=== PATIENT | female | born 1965 | race Two or more races ===

== ENCOUNTER → 2017-01-07 | Outpatient (CLI) | payer OTHER ==
--- NOTE | 2017-01-07 16:17 | MA ---
Screening Digital Mammogram With iCAD Analysis Clinical Indications: Routine screening. A sister was diagnosed with breast cancer in her 50s. Technique: Standard cephalocaudal and mediolateral oblique projections were obtained. This examinatio n was processed by the iCAD computer aided detection system. Comparison: December 2015, November 2014, November 2013, August 2012, July 2011, July 2010. Breast density: Type C; Heterogeneously dense. Findings: CAD was reviewed. There is a possible developing asymmetry noted in the slightly medial lef t breast. No definite correlate is found on the oblique view. No suspicious microcalcifications are i dentified. The right breast is stable in appearance. Impression: Possible developing left breast asymmetry requires further evaluation, BI-RADS 0. Recommendation: Spot compression assessment of the left breast with ultrasound suggested if the abnor mality persists on diagnostic evaluation. [facility] will send a result letter to the patient. Dense breast parenchyma diminishes mammographic sensitivity. Negative mammography should not preclude additional workup of a clinically suspicious finding. The patient's information is entered into a reminder system with a target due date for her next mammo gram.
== END ==
LOC: CIMAGING 14:34
DX: Z12.31 Encounter for screening mammogram for malignant neoplasm of breast (principal); Z80.3 Family history of malignant neoplasm of breast
CPT/HCPCS: G0202

== ENCOUNTER 2017-04-16 14:53 | Emergency (ER) | payer OTHER ==
[2017-04-16 14:57] VITALS: TEMP 97.9
--- NOTE | 2017-04-16 15:39 | EDPHY ---
H & P Stated Complaint: 1 WEEK CP/L FACIAL NUMBNESS/L EYE HURTS Time Seen by Provider: 04/16/17 15:18 HPI/ROS: CHIEF COMPLAINT: Multiple complaints HISTORY OF PRESENT ILLNESS: This patient is a 51 year old female referred to the Emergency Department by her PCP for multiple vague complaints including chest pressure, abdominal pain, and facial paresthesias. She describes the chest pressure as episodic over the past two weeks, with each episode lasting for on hour before subsiding spontaneously. At time of arrival, her chest pressure is moderate (severity 6/10) and localized to her left anterior chest. She has not identified any alleviating or exacerbating factors for the pain but does state it is often precipitated by eating a large meal. Her pain is not exertional. She reports diffuse abdominal pain, most severe bilaterally to her lower abdomen, first beginning three weeks prior to arrival and present at time of arrival to the ED. Her abdominal pain is often precipitated by eating a large meal. The patient is also concerned of a throbbing sensation to her left eye with surrounding paresthesias to the left side of her face and occasionally to her left hand. She denies vomiting, diarrhea, nausea, or urinary complaints. No weakness, speech changes, vision changes, or additional neurological deficits. No pertinent medical history. REVIEW OF SYSTEMS: Aside from elements discussed in the HPI, a comprehensive 10-point review of systems was reviewed and is negative apart from left lateral neck pain beginning one month ago and improving over time. History and ROS obtained with the help of a Occitan humanities and languages professor. PAST MEDICAL HISTORY: Anemia, acid reflux. FAMILY HISTORY: Family history includes cardiac disease in grandmother and uncles and CVA in sister at age 50. SOCIAL HISTORY: Denies drug use. Non-smoker. No alcohol use. PHYSICAL EXAM: VITAL SIGNS Reviewed by me. GENERAL: Well-developed, well-nourished, pleasant, conversant, mostly concerned about her chest discomfort as well as her facial numbness. HEENT: Atraumatic. Eyes: PERRL, EOMI, no nystagmus. No icterus. No injection. Mouth: moist mucous membranes. No erythema or lesions. Neck: No meningitis. Nontender to palpation. No adenopathy. LUNGS: Clear to auscultation bilaterally, no wheezes, rhonchi or rales. CARDIAC: Regular rate and rhythm, no rubs, murmurs or gallops. No chest wall tenderness. ABDOMEN: Soft, epigastric tenderness to palpation. No guarding or rebound. Nondistended. Normal bowel sounds. BACK: No CVA tenderness. EXTREMITIES: No trauma. No edema. Range of motion is normal throughout. NEURO: Alert and oriented, cranial nerves II through XII are intact. Motor strength 5 over 5 in all major muscle groups. Sensation intact to light touch. Normal gait. SKIN: Warm and dry, no rash. PSYCHIATRIC: Normal mentation, no agitation. Portions of this note were transcribed by a medical director/head team physician. I personally performed a history, physical exam, medical decision making, and confirmed accuracy of information the transcribed note. 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 - Personal History LMP (Females 10-55): Irregular Current Tetanus/Diphtheria Vaccine: No - Medical/Surgical History Hx Asthma: No Hx Chronic Respiratory Disease: No Hx Diabetes: No Hx Cardiac Disease: No Hx Renal Disease: No Hx Cirrhosis: No Hx Alcoholism: No Hx HIV/AIDS: No Hx Splenectomy or Spleen Trauma: No Other PMH: GERD - Social History Smoking Status: Never smoked Constitutional: Initial Vital Signs Temperature (C) 36.6 C 04/16/17 14:55 Heart Rate 71 04/16/17 14:55 Respiratory Rate 18 04/16/17 14:55 Blood Pressure 129/67 H 04/16/17 14:55 O2 Sat (%) 94 04/16/17 14:55 O2 Delivery Mode Room Air Allergies/Adverse Reactions: No Known Allergies Allergy (Verified 04/16/17 14:54) Home Medications: Medication Instructions Recorded Omeprazole 06/03/16 Ranitidine HCl [Zantac] 150 mg PO HS #30 tablet 04/16/17 Medical Decision Making - Diagnostics EKG Interpretation: The 12 lead EKG was interpreted by myself: Normal sinus rhythm, rate 71, no ischemic changes. See hard copy and/or "tracemaster" electronic copy for interpretation. Imaging Results: Imaging Impressions Chest X-Ray 04/16/17 15:42 Impression: Normal chest. Head CT 04/16/17 15:43 Impression: Normal noncontrast CT of the brain. Results called to Dr. Marion Byrne at the time of the interpretation. Imaging: Discussed imaging studies w/ faculty i on call medical assistant Radiologist ED Course/Re-evaluation: This 51-year-old female presents with a list of vague complaints including episodic left-sided chest pain, left-sided paresthesias to her face and left hand, and diffuse abdominal pain all of which presented over the past month. It is unclear whether or not these complaints are associated with one another. Her chest pain is episodic and described as pressure without radiation; it is not exertional, it is not associated with diaphoresis or nausea. She reports abdominal pain and has slight epigastric tenderness during the examination. Her left-sided facial paresthesias are intermittent. She has no associated neurological complaints and no neurological deficits on exam. She is a non-smoker. Family history includes CVA in sister and cardiac disease in distant relatives. She does not smoke. No history of diabetes. Will proceed with cardiac workup, labs, and CT of the head. I discussed this treatment plan with the patient who is agreeable to this. Prior medical records reviewed by myself. Abdominal ultrasound in May 2016 was negative for acute process, specifically no gallstones. PO Gi Cocktail and 324mg PO Aspirin administered. 1615: Imaging results reported to me: CT of the head is negative for acute process. Labs obtained and are within normal ranges. D-dimer and Troponin are both negative. 1650: On reevaluation, the patient is feeling much better following the Gi Cocktail. I discussed lab and imaging results with the patient, who is relieved. I discussed with her my recommendation that she be reevaluated by her PCP for her complaints. I also included a referral for gastroenterology and neurology. She understands customary return precautions and will be discharged home in good condition. Differential Diagnosis: After history and physical examination, the differential for chest pain was considered, including but not limited to, myocardial ischemia, acute coronary syndrome, pulmonary embolus, chest wall pain, pleural inflammation and pulmonary infectious causes. After obtaining the patient's history and performing an examination, differential diagnosis for the patient's abdominal pain considered included but was not limited to appendicitis, cholecystitis, gastritis, pancreatitis, kidney stones, urinary tract infections and other causes. Differential diagnosis for the patient's neurologic complaints was considered including but not limited to electrolyte abnormalities, TIA, stroke, complex migraine, referred pain. - Data Points Laboratory Results: Laboratory Results 04/16/17 15:10 04/16/17 15:10 04/16/17 04/16/17 04/16/17 15:10 15:10 15:10 WBC RBC Hgb Hct MCV MCH MCHC RDW Plt Count MPV Neut % (Auto) Lymph % (Auto) Mccone % (Auto) Eos % (Auto) Baso % (Auto) Nucleat RBC Rel Count Absolute Neuts (auto) Absolute Lymphs (auto) Absolute Monos (auto) Absolute Eos (auto) Absolute Basos (auto) Absolute Nucleated RBC Immature Gran % Immature Gran # D-Dimer < 0.27 ug/mLFEU ug/mLFEU (0.00-0.50) Sodium 142 mEq/L mEq/L (134-144) Potassium 3.9 mEq/L mEq/L (3.5-5.2) Chloride 104 mEq/L mEq/L (97-110) Carbon Dioxide 26 mEq/l mEq/l (22-31) Anion Gap 12 mEq/L mEq/L (8-16) BUN 12 mg/dL mg/dL (7-23) Creatinine 0.6 mg/dL mg/dL (0.6-1.0) Estimated GFR > 60 Glucose 98 mg/dL mg/dL (70-100) Calcium 10.2 mg/dL mg/dL (8.5-10.4) Total Bilirubin 0.5 mg/dL mg/dL (0.1-1.4) Conjugated Bilirubin 0.3 mg/dL mg/dL (0.0-0.5) Unconjugated Bilirubin 0.2 mg/dL mg/dL (0.0-1.1) AST 29 IU/L IU/L (14-46) ALT 46 IU/L IU/L (9-52) Alkaline Phosphatase 82 IU/L IU/L (38-126) Creatine Kinase 39 IU/L IU/L (0-156) CK-MB (CK-2) Fraction 0.36 ng/mL ng/mL (0-3.19) Troponin I < 0.012 ng/mL ng/mL < 0.012 ng/mL ng/mL (0-0.034) (0-0.034) Total Protein 8.4 g/dL H g/dL (6.3-8.2) Albumin 5.0 g/dL g/dL (3.5-5.0) Lipase 135.0 IU/L IU/L (23-300) 04/16/17 15:10 WBC 7.77 10^3/uL 10^3/uL (3.80-9.50) RBC 4.89 10^6/uL 10^6/uL (4.18-5.33) Hgb 14.4 g/dL g/dL (12.6-16.3) Hct 41.9 % % (38.0-47.0) MCV 85.7 fL fL (81.5-99.8) MCH 29.4 pg pg (27.9-34.1) MCHC 34.4 g/dL g/dL (32.4-36.7) RDW 14.9 % % (11.5-15.2) Plt Count 281 10^3/uL 10^3/uL (150-400) MPV 9.4 fL fL (8.7-11.7) Neut % (Auto) 51.7 % % (39.3-74.2) Lymph % (Auto) 36.8 % % (15.0-45.0) Mccone % (Auto) 7.2 % % (4.5-13.0) Eos % (Auto) 3.2 % % (0.6-7.6) Baso % (Auto) 0.8 % % (0.3-1.7) Nucleat RBC Rel Count 0.0 % % (0.0-0.2) Absolute Neuts (auto) 4.02 10^3/uL 10^3/uL (1.70-6.50) Absolute Lymphs (auto) 2.86 10^3/uL 10^3/uL (1.00-3.00) Absolute Monos (auto) 0.56 10^3/uL 10^3/uL (0.30-0.80) Absolute Eos (auto) 0.25 10^3/uL 10^3/uL (0.03-0.40) Absolute Basos (auto) 0.06 10^3/uL 10^3/uL (0.02-0.10) Absolute Nucleated RBC 0.00 10^3/uL 10^3/uL (0-0.01) Immature Gran % 0.3 % % (0.0-1.1) Immature Gran # 0.02 10^3/uL 10^3/uL (0.00-0.10) D-Dimer Sodium Potassium Chloride Carbon Dioxide Anion Gap BUN Creatinine Estimated GFR Glucose Calcium Total Bilirubin Conjugated Bilirubin Unconjugated Bilirubin AST ALT Alkaline Phosphatase Creatine Kinase CK-MB (CK-2) Fraction Troponin I Total Protein Albumin Lipase Medications Given: Discontinued Medications Al Hydroxide/Mg Hydroxide (Maalox Susp) 30 ml PO ONCE ONE Stop: 04/16/17 15:42 Last Admin: 04/16/17 15:57 Dose: 30 ml Aspirin (Aspirin) 324 mg PO EDNOW ONE Stop: 04/16/17 15:42 Last Admin: 04/16/17 15:57 Dose: 324 mg Hyoscyamine Sulfate (Levsin, Hyomax-Sl) 0.25 mg PO ONCE ONE Stop: 04/16/17 15:42 Last Admin: 04/16/17 15:57 Dose: 0.25 mg Lidocaine (Lidocaine 2% Viscous) 15 ml PO ONCE ONE Stop: 04/16/17 15:42 Last Admin: 04/16/17 15:57 Dose: 15 ml Departure - Departure Disposition: Home, Routine, Self-Care Clinical Impression: Atypical chest pain, Abdominal pain, Facial paresthesia Condition: Good Instructions: Chest Pain (ED), Paresthesia (ED), Abdominal Pain (ED) Additional Instructions: 1. Start taking Tagamet as directed at night to help with your abdominal pain and acid reflux. 2. Follow-up with your primary care provider for further evaluation of your complaints in the next 5-7 days. 3. I have also included a referral to a neurologist, Dr. Zuniga, to discuss your numbness and tingling. Please call to schedule an appointment. 4. Follow-up with a lathe hand for further evaluation of your abdominal pain and acid reflux. We have referred you to our on-call provider. 5. Return to the Emergency Department if you experience difficulty breathing, worsening chest pain, worsening abdominal pain, fever or chills, or for other serious concerns. 1. Empiece a shellie Tagamet a patricia se le indico por la noche para ayudar con mendez dolor abdominal y el reflujo. 2. Lindy paola jennie de seguimiento con mendez doctor primario para futura evaluacion de geraldine quejas en los proximos 5-7 james. 3. He incluido paola recomendacion con un neurologo Dr. Zuniga para comentar el dormideo y cosquilleo. Por favor llamele para hacer paola jennie de seguimiento. 4. Lindy seguimiento con mendez gastroenterlogo para re evaluar mendez dolor abdominal y reflujo. Le recomendamos nuestro proveedor en llamada. 5. Regrese a la marsha de emergencia si experimenta dificultad para respirar, empeora el dolor de pecho y abdominal, si tiene fiebres o escalofrios u otras preocupaciones serias. Referrals: MAYDA ORNELAS [Primary Care Provider] - As per Instructions Amandeep Zhu MD [Medical Doctor] - As per Instructions Bjorn Zuniga MD [Medical Doctor] - As per Instructions Prescriptions: Ranitidine HCl [Zantac] 150 mg PO HS #30 tablet Print Language: Occitan Report Scribed for: Marion Byrne Report Scribed by: Aria Gomez Date of Report: 04/16/17 Time of Report: 15:42
[2017-04-16] MEDS ORDERED: HYOSCYAMINE SULFATE 0.125 MG TAB PO ONE (15:41)
[2017-04-16] MEDS ORDERED: LIDOCAINE 2% VISCOUS 15 ML UDCUP PO ONE (15:41)
[2017-04-16] MEDS ORDERED: MAG HYDROX/AL HYDROX/SIMETH 30 ML UDCUP PO ONE (15:41)
[2017-04-16] MEDS ORDERED: ASPIRIN 81 MG CHEWABLE TAB PO ONE (15:41)
--- NOTE | 2017-04-16 15:41 | CPEKG ---
Heart Rate: 71 RR Interval: 845 P-R Interval: 124 QRSD Interval: 86 QT Interval: 400 QTC Interval: 435 P Toledo: 22 QRS Toledo: 45 T Wave Toledo: 47 EKG Severity - NORMAL ECG - EKG Impression: SINUS RHYTHM Electronically Signed By: Marion Byrne 17-Apr-2017 00:54:08
[2017-04-16 15:51] LABS: % IMMATURE GRANULYOCYTES 0.3 % (0.0-1.1); ABSOLUTE IMMATURE GRANULOCYTES 0.02 10^3/uL (0.00-0.10); ADD DIFF? NO; ADD MORPH? NO; ADD SCAN? NO; ATYPICAL LYMPHOCYTE FLAG 20 (0-99); FRAGMENT RBC FLAG 0 (0-99); HEMATOCRIT 41.9 % (38.0-47.0); HEMOGLOBIN 14.4 g/dL (12.6-16.3); LEFT SHIFT FLG 0 (0-99); LIPEMIA HEMOLYSIS FLAG 90 (0-99); MEAN CELL HEMOGLOBIN 29.4 pg (27.9-34.1); MEAN CELL HEMOGLOBIN CONCENTR. 34.4 g/dL (32.4-36.7); MEAN CELL VOLUME 85.7 fL (81.5-99.8); MEAN PLATELET VOLUME 9.4 fL (8.7-11.7); PLATELET CLUMPS FLAG 0 (0-99); PLATELET COUNT 281 10^3/uL (150-400); RED BLOOD CELL COUNT 4.89 10^6/uL (4.18-5.33); RED CELL DISTRIBUTION WIDTH 14.9 % (11.5-15.2)
[2017-04-16 16:02] LABS: ALANINE AMINOTRANSFERASE 46 IU/L (9-52); ALKALINE PHOSPHATASE 82 IU/L (38-126); ANION GAP 12 mEq/L (8-16); ASPARTATE AMINOTRANSFERASE 29 IU/L (14-46); BILIRUBIN,TOTAL 0.5 mg/dL (0.1-1.4); BILIRUBIN-CONJUGATED 0.3 mg/dL (0.0-0.5); BILIRUBIN-UNCONJUGATED 0.2 mg/dL (0.0-1.1); CALCIUM 10.2 mg/dL (8.5-10.4); CARBON DIOXIDE 26 mEq/l (22-31); CHLORIDE 104 mEq/L (97-110); CREATININE 0.6 mg/dL (0.6-1.0); GLOMERULAR FILTRATION RATE > 60; GLUCOSE 98 mg/dL (70-100); POTASSIUM 3.9 mEq/L (3.5-5.2); SODIUM 142 mEq/L (134-144); TOTAL PROTEIN 8.4 g/dL (6.3-8.2)
[2017-04-16 16:13] LABS: CREATINE KINASE-MB FRACTION 0.36 ng/mL (0-3.19); TROPONIN I < 0.012 ng/mL (0-0.034)
[2017-04-16 17:15] VITALS: BP 118/62; PULSE 67; RESP 16; O2SAT 95
== END 2017-04-16 17:30 | disposition home or self-care (01) ==
DX: R07.89 Other chest pain (principal); R10.13 Epigastric pain; R20.2 Paresthesia of skin

== ENCOUNTER 2017-06-25 11:22 | Emergency (ER) | payer OTHER ==
[2017-06-25] MEDS ORDERED: NS 1,000 ML IV ONE (11:33)
[2017-06-25] MEDS ORDERED: HYDROmorphONE/DILAUDID 1 MG/ML SYR IVP ONE (11:33)
[2017-06-25] MEDS ORDERED: ONDANSETRON 4 MG/2 ML VIAL IVP ONE (11:33)
--- NOTE | 2017-06-25 11:35 | EDPHY ---
H & P Stated Complaint: vomiting, diarrhea sweat/chills since Thursday Time Seen by Provider: 06/25/17 11:29 HPI/ROS: CHIEF COMPLAINT: Nausea vomiting HISTORY OF PRESENT ILLNESS: The patient is a 51-year-old female with no significant past medical history who comes to the emergency department complaining of nausea and vomiting for the last 2 days as well as diarrhea. She states that they have been persistent. She has not had a fever. No blood. Her daughter is sick with similar symptoms. She complains of cramping in her upper abdomen but no lower abdominal pain. She has a history of but no other surgeries. She also states that she has intermittent dysuria. REVIEW OF SYSTEMS: Constitutional: denies: chills, fever, recent illness, recent injury EENTM: denies: blurred vision, double vision, nose congestion Respiratory: denies: cough, shortness of breath Cardiac: denies: chest pain, irregular heart rate, lightheadedness, palpitations Gastrointestinal/Abdominal: See HPI Genitourinary: denies: dysuria, frequency, hematuria, pain Musculoskeletal: denies: joint pain, muscle pain Skin: denies: lesions, rash, jaundice, bruising Neurological: denies: headache, numbness, paresthesia, tingling, dizziness, weakness Hematologic/Lymphatic: denies: blood clots, easy bleeding, easy bruising Immunologic/allergic: denies: HIV/AIDS, transplant EXAM: GENERAL: Well-appearing, overweight . HEAD: Atraumatic, normocephalic. EYES: Pupils equal round and reactive to light, extraocular movements intact, sclera anicteric, conjunctiva are normal. ENT: TMs normal, nares patent, oropharynx clear without exudates. Dry mucous membranes. NECK: Normal range of motion, supple without lymphadenopathy or JVD. LUNGS: Breath sounds clear to auscultation bilaterally and equal. No wheezes rales or rhonchi. HEART: Regular rate and rhythm without murmurs, rubs or gallops. ABDOMEN: Soft, nontender, normoactive bowel sounds. No guarding, no rebound. No masses appreciated. BACK: No CVA tenderness, no spinal tenderness, step-offs or deformities EXTREMITIES: Normal range of motion, no pitting or edema. No clubbing or cyanosis. NEUROLOGICAL: Cranial nerves II through XII grossly intact. Normal speech, normal gait. 5/5 strength, normal movement in all extremities, normal sensation PSYCH: Normal mood, normal affect. SKIN: Warm, dry, normal turgor, no visible rashes or lesions. 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 Exam Limitations: No limitations - Personal History LMP (Females 10-55): Irregular Current Tetanus/Diphtheria Vaccine: No - Medical/Surgical History Hx Asthma: No Hx Chronic Respiratory Disease: No Hx Diabetes: No Hx Cardiac Disease: No Hx Renal Disease: No Hx Cirrhosis: No Hx Alcoholism: No Hx HIV/AIDS: No Hx Splenectomy or Spleen Trauma: No Other PMH: GERD. C section - Family History Significant Family History: No pertinent family hx - Social History Smoking Status: Never smoked Alcohol Use: Sober Drug Use: None Constitutional: Initial Vital Signs Temperature (C) 37.1 C 06/25/17 11:31 Heart Rate 84 06/25/17 11:31 Respiratory Rate 20 06/25/17 11:31 Blood Pressure 139/84 H 06/25/17 11:31 O2 Sat (%) 95 06/25/17 11:31 O2 Delivery Mode Room Air Allergies/Adverse Reactions: No Known Allergies Allergy (Verified 06/25/17 11:33) Home Medications: Medication Instructions Recorded Cephalexin [Keflex] 500 mg PO TID #21 cap 06/25/17 Omeprazole 06/25/17 Ondansetron Odt [Zofran Odt 4 mg 4 mg PO Q4 PRN #20 tab 06/25/17 (RX)] Medical Decision Making ED Course/Re-evaluation: 12:50 p.m. the patient is feeling much better but is sleepy after 0.5 mg of Dilaudid. Her abdominal exam remains benign. I will treat her with a 2nd L. Her mucous membranes still appear slightly dry. Will continue to observe. 1:30 p.m. the patient is feeling completely well. Her abdominal exam remains benign. Under for antibiotics finished we will discharge her. She appears to have a slight urinary tract infection based on her symptoms. Differential Diagnosis: Partial list of the Differential diagnosis considered include but were not limited to; gastritis, food poisoning and although unlikely based on the history and physical exam, I also considered biliary disease, peptic ulcer disease, appendicitis, ischemia, volvulus, obstruction. I discussed these differential diagnoses and the plan with the patient as well as the usual and expected course. The patient understands that the diagnosis is provisional and that in medicine we are not always correct and that further workup is often warranted. Usual and customary warnings were given. All of the patient's questions were answered. The patient was instructed to return to the emergency department should the symptoms at all worsen or return, otherwise to followup with the physician as we discussed. - Data Points Laboratory Results: Laboratory Results 06/25/17 12:25 06/25/17 12:25 06/25/17 06/25/17 06/25/17 13:06 12:25 12:25 WBC 8.48 10^3/uL 10^3/uL (3.80-9.50) RBC 4.64 10^6/uL 10^6/uL (4.18-5.33) Hgb 13.9 g/dL g/dL (12.6-16.3) Hct 39.9 % % (38.0-47.0) MCV 86.0 fL fL (81.5-99.8) MCH 30.0 pg pg (27.9-34.1) MCHC 34.8 g/dL g/dL (32.4-36.7) RDW 12.9 % % (11.5-15.2) Plt Count 190 10^3/uL 10^3/uL (150-400) MPV 9.0 fL fL (8.7-11.7) Neut % (Auto) 87.6 % H % (39.3-74.2) Lymph % (Auto) 9.1 % L % (15.0-45.0) Hinds % (Auto) 2.9 % L % (4.5-13.0) Eos % (Auto) 0.0 % L % (0.6-7.6) Baso % (Auto) 0.2 % L % (0.3-1.7) Nucleat RBC Rel Count 0.0 % % (0.0-0.2) Absolute Neuts (auto) 7.42 10^3/uL H 10^3/uL (1.70-6.50) Absolute Lymphs (auto) 0.77 10^3/uL L 10^3/uL (1.00-3.00) Absolute Monos (auto) 0.25 10^3/uL L 10^3/uL (0.30-0.80) Absolute Eos (auto) 0.00 10^3/uL L 10^3/uL (0.03-0.40) Absolute Basos (auto) 0.02 10^3/uL 10^3/uL (0.02-0.10) Absolute Nucleated RBC 0.00 10^3/uL 10^3/uL (0-0.01) Immature Gran % 0.2 % % (0.0-1.1) Seg Neutrophils % 76 % % Band Neutrophils % 11 % % Lymphocytes % 9 % % Monocytes % 4 % % Immature Gran # 0.02 10^3/uL 10^3/uL (0.00-0.10) Absolute Seg Neuts 6.4 K/MM3 K/MM3 (1.8-7) Absolute Band Neuts 0.9 K/MM3 H K/MM3 (0-0.7) Absolute Lymphocytes 0.8 K/mm3 L K/mm3 (1.0-4.8) Absolute Monocytes 0.3 K/mm3 K/mm3 (0-0.8) Platelet Estimate ADEQUATE (ADEQ) Sodium 138 mEq/L mEq/L (134-144) Potassium 3.7 mEq/L mEq/L (3.5-5.2) Chloride 101 mEq/L mEq/L (97-110) Carbon Dioxide 24 mEq/l mEq/l (22-31) Anion Gap 13 mEq/L mEq/L (8-16) BUN 12 mg/dL mg/dL (7-23) Creatinine 0.6 mg/dL mg/dL (0.6-1.0) Estimated GFR > 60 Glucose 107 mg/dL H mg/dL (70-100) Calcium 9.2 mg/dL mg/dL (8.5-10.4) Total Bilirubin 0.3 mg/dL mg/dL (0.1-1.4) Conjugated Bilirubin 0.1 mg/dL mg/dL (0.0-0.5) Unconjugated Bilirubin 0.2 mg/dL mg/dL (0.0-1.1) AST 50 IU/L H IU/L (14-46) ALT 72 IU/L H IU/L (9-52) Alkaline Phosphatase 91 IU/L IU/L (38-126) Total Protein 6.9 g/dL g/dL (6.3-8.2) Albumin 3.9 g/dL g/dL (3.5-5.0) Lipase 56.0 IU/L IU/L (23-300) Urine Color YELLOW Urine Appearance CLEAR Urine pH 6.5 (5.0-7.5) Ur Specific Hardtner <= 1.005 (1.002-1.030) Urine Protein NEGATIVE (NEGATIVE) Urine Ketones NEGATIVE (NEGATIVE) Urine Blood TRACE H (NEGATIVE) Urine Nitrate NEGATIVE (NEGATIVE) Urine Bilirubin NEGATIVE (NEGATIVE) Urine Urobilinogen 0.2 EU EU (0.2-1.0) Ur Leukocyte Esterase TRACE H (NEGATIVE) Urine RBC 1-3 /hpf /hpf (0-3) Urine WBC 3-5 /hpf H /hpf (0-3) Ur Epithelial Cells 1+ /lpf /lpf (NONE-1+) Urine Bacteria TRACE /hpf H /hpf (NONE SEEN) Urine Glucose NEGATIVE (NEGATIVE) Medications Given: Discontinued Medications Hydromorphone HCl (Dilaudid) 0.5 mg IVP EDNOW ONE Stop: 06/25/17 11:34 Last Admin: 06/25/17 12:27 Dose: 0.5 mg Sodium Chloride (Ns) 1,000 mls @ 0 mls/hr IV EDNOW ONE; Wide Open PRN Reason: Protocol Stop: 06/25/17 11:34 Last Admin: 06/25/17 12:27 Dose: 1,000 mls Ceftriaxone Sodium 1 gm/ (Sodium Chloride) 100 mls @ 200 mls/hr IV EDNOW ONE PRN Reason: Protocol Stop: 06/25/17 13:53 Last Admin: 06/25/17 13:34 Dose: 100 mls Ondansetron HCl (Zofran) 4 mg IVP EDNOW ONE Stop: 06/25/17 11:34 Last Admin: 06/25/17 12:27 Dose: 4 mg Departure - Departure Disposition: Home, Routine, Self-Care Clinical Impression: Acute gastroenteritis Urinary tract infection Qualifiers: Urinary tract infection type: acute cystitis Hematuria presence: without hematuria Qualified Code(s): N30.00 - Acute cystitis without hematuria Condition: Fair Instructions: Urinary Tract Infection in Women (ED), Gastroenteritis (ED) Referrals: FAY VALENCIA,Alice [Primary Care Provider] - As per Instructions Prescriptions: Cephalexin [Keflex] 500 mg PO TID #21 cap Ondansetron Odt [Zofran Odt 4 mg (RX)] 4 mg PO Q4 PRN #20 tab PRN Reason: Nausea & Vomiting
[2017-06-25 12:30] LABS: % IMMATURE GRANULYOCYTES 0.2 % (0.0-1.1); ABSOLUTE IMMATURE GRANULOCYTES 0.02 10^3/uL (0.00-0.10); ADD DIFF? NO; ADD MORPH? NO; ADD SCAN? YES; ATYPICAL LYMPHOCYTE FLAG 0 (0-99); FRAGMENT RBC FLAG 0 (0-99); HEMATOCRIT 39.9 % (38.0-47.0); HEMOGLOBIN 13.9 g/dL (12.6-16.3); LIPEMIA HEMOLYSIS FLAG 90 (0-99); MEAN CELL HEMOGLOBIN CONCENTR. 34.8 g/dL (32.4-36.7); PLATELET CLUMPS FLAG 0 (0-99); PLATELET COUNT 190 10^3/uL (150-400); RED BLOOD CELL COUNT 4.64 10^6/uL (4.18-5.33); RED CELL DISTRIBUTION WIDTH 12.9 % (11.5-15.2)
[2017-06-25 12:43] LABS: LEFT SHIFT FLG 160 (0-99)
[2017-06-25 12:48] LABS: ANION GAP 13 mEq/L (8-16); CARBON DIOXIDE 24 mEq/l (22-31); CHLORIDE 101 mEq/L (97-110); CREATININE 0.6 mg/dL (0.6-1.0); GLUCOSE 107 mg/dL (70-100); POTASSIUM 3.7 mEq/L (3.5-5.2); SODIUM 138 mEq/L (134-144)
[2017-06-25 12:49] LABS: ALANINE AMINOTRANSFERASE 72 IU/L (9-52); ALBUMIN 3.9 g/dL (3.5-5.0); ALKALINE PHOSPHATASE 91 IU/L (38-126); ASPARTATE AMINOTRANSFERASE 50 IU/L (14-46); BILIRUBIN,TOTAL 0.3 mg/dL (0.1-1.4); BILIRUBIN-CONJUGATED 0.1 mg/dL (0.0-0.5); BILIRUBIN-UNCONJUGATED 0.2 mg/dL (0.0-1.1); CALCIUM 9.2 mg/dL (8.5-10.4); GLOMERULAR FILTRATION RATE > 60; TOTAL PROTEIN 6.9 g/dL (6.3-8.2)
[2017-06-25 13:09] LABS: COLOR YELLOW; LEUKOCYTE ESTERASE,URINE TRACE (NEGATIVE); NITRITE,URINE NEGATIVE (NEGATIVE); PH,URINE 6.5 (5.0-7.5)
[2017-06-25 13:13] LABS: SCAN POSITIVE
[2017-06-25 13:15] LABS: PLATELET ESTIMATE ADEQUATE (ADEQ)
[2017-06-25 13:23] LABS: BACTERIA TRACE /hpf (NONE SEEN)
[2017-06-25 14:03] VITALS: BP 108/57; PULSE 98; RESP 20; TEMP 98.2; O2SAT 94
== END 2017-06-25 14:12 | disposition home or self-care (01) ==
LOC: CED 11:22
DX: K52.9 Noninfective gastroenteritis and colitis, unspecified (principal); N30.00 Acute cystitis without hematuria; B96.89 Other specified bacterial agents as the cause of diseases classified elsewhere; E86.9 Volume depletion, unspecified
CPT/HCPCS: 80048-PO; 80076-PO; 81003-PO; 81015-PO; 83690-PO; 85025-PO; 96365; J0696; J1170; J2405